=== PATIENT | female | born 1985 | race Caucasian/White ===

== ENCOUNTER 2022-12-10 08:58 | Inpatient (IN) | payer BC ==
[~2022-12-10] VITALS: Ht 165.1 cm; Wt 56.7 kg
--- NOTE | 2022-12-10 09:25 | NUR ---
PAtient AOx4 able to xpress her concerns. Patient states she stepped on an earring on friday, swiollen left foot. PAtient with no signs of distress or discomfort, will continue to monitor.
[2022-12-10] MEDS ORDERED: VANCOMYCIN 1 GM in IV D5W 250 ML IV ONE (10:30)
[2022-12-10] MEDS ORDERED: CEFTRIAXONE 1 G in IV D5W 50 ML IV ONE (10:30)
[2022-12-10] MEDS ORDERED: CEFTRIAXONE 1GM BAG (ER ONLY) 50 ML IV ONE (10:39)
--- NOTE | 2022-12-10 10:40 | NUR ---
Discussed plan of care with patient ans medications ordered by MD. Patient verbalized agreement.
--- NOTE | 2022-12-10 10:46 | NUR ---
Blood collected, sent to lab
--- NOTE | 2022-12-10 10:50 | NUR ---
MD MADE AWARE ABOUT CEFTRIAXONE REACTION. HE IS OK WITH IT. NOTIFIED PHARMACY.
[2022-12-10] MEDS ORDERED: VANCOMYCIN 1 GM VIAL ONE (10:52)
[2022-12-10] MEDS ORDERED: ONDANSETRON HCL/PF 4 MG/2 ML VIAL IV ONE (11:00)
[2022-12-10] MEDS ORDERED: IV NS 0.9% 1,000 ML IV ONE (11:00)
[2022-12-10] MEDS: MORPHINE SULFATE INJ 2 MG/ML DISP.SYRIN IV ONE ×2 (11:00→11:46)
[2022-12-10 11:02] LABS: BASOPHILS % (AUTO) 0.2 % (0.0-2.0); EOSINOPHILS % (AUTO) 0.9 % (0.0-6.0); HEMATOCRIT 41 % (33-45); HEMOGLOBIN 13.4 g/dL (11.5-14.8); LYMPHOCYTES # (AUTO) 1.2 K/uL (0.8-4.8); MEAN CORPUSCULAR HGB CONC 33 g/dl (31.0-36.0); MEAN CORPUSCULAR VOLUME 90 fL (82-100); MONOCYTES # (AUTO) 1.5 K/uL (0.1-1.30); MONOCYTES % (AUTO) 9.9 % (2.0-12.0); NEUTROPHILS # (AUTO) 12.2 K/uL (1.8-8.9); PLATELET COUNT (AUTO) 251 K/uL (150-450); WHITE BLOOD COUNT (AUTO) 15.1 K/uL (4.3-11.0)
[2022-12-10] MEDS ORDERED: MORPHINE SULFATE INJ 2 MG/ML DISP.SYRIN ONE ×2 (11:06→12:21)
[2022-12-10] MEDS ORDERED: ONDANSETRON HCL/PF 4 MG/2 ML VIAL ONE (11:06)
--- NOTE | 2022-12-10 11:08 | NUR ---
Per reggie Goss to admin Morphine 2mg, per patients request.
--- NOTE | 2022-12-10 11:14 | NUR ---
COVID SWAB TAKEN
[2022-12-10 11:16] LABS: C-REACTIVE PROTEIN 7.2 mg/dL (0.0-0.9)
[2022-12-10 11:23] LABS: CALCIUM, SERUM 9.5 mg/dL (8.5-10.1); CREATININE 0.9 mg/dL (0.6-1.3); POTASSIUM 3.9 mmol/L (3.5-5.1)
[2022-12-10] MEDS ORDERED: diphenhydrAMINE HCL 50 MG/ML VIAL ONE (12:22)
[2022-12-10] MEDS ORDERED: diphenhydrAMINE HCL 50 MG/ML VIAL IV ONE (12:30)
--- NOTE | 2022-12-10 13:23 | NUR ---
BED GIVEN 324-2, NURSE IS CAMERON
--- NOTE | 2022-12-10 14:13 | NUR ---
Called [facility], report given to Emerita, patient cleared for transfer.
[2022-12-10] MEDS ORDERED: MAG HYDROX/AL HYDROX/SIMETH 30 ML UDC PO PRN (14:30)
[2022-12-10] MEDS ORDERED: ONDANSETRON HCL/PF 4 MG/2 ML VIAL IVP PRN (14:30)
[2022-12-10] MEDS ORDERED: MAGNESIUM HYDROXIDE 30 ML UDC PO PRN (14:30)
[2022-12-10] MEDS ORDERED: Z GUARD REMEDY 4 OZ OINT TP PRN (14:30)
--- NOTE | 2022-12-10 14:30 | NUR ---
RN NOTE RECEIVED PATIENT VIA GURNEY FROM THE EMERGENCY ROOM. NO SIGNS OF DISTRESS. PATIENT WAS ORIENTED TO ROOM SET UP AND EDUCATED ON THE USE OF CALL LIGHT. VITAL SIGNS TAKEN AND STABLE. SKIN ASSESSMENT PARTIALLY DONE, PATIENT REFUSED SKIN ASSESSMENT, ALLOWED ASSESSMENT OF THE LEFT LEG AND PICTURES TAKEN.BELONGING LIST CHECKED AND SIGNED. PATIENT HAVE A PURSE BUT DID NOT ALLOW US TO CHECK PURSE. PER MED RECON NURSE, PATIENT STATED SHE HAVE 2 MEDICATIONS IN HER PURSE BUT REFUSE TO GIVE IT TO US.PATIENT WAS EDUCATED AND ADVISED NOT TO TAKE ANY MEDICATION WITHOUT KNOWING THAT IS SAFE AND WITHOUT TELLING DR AND NURSES. PATIENT A/O X4, PAIN LEVEL 8/10. PAIN MEDICATION GIVEN. ON ROOM AIR, BREATHING EVEN AND UNLABORED, NO DISTRESS OR SOB. WITH IV ACCESS AT RAC #20G SL, INTACT, PATENT AND FLUSHING WELL. STARTED 1/2 NS AT 75ML/HR. FALL AND SAFETY MEASURE IN PLACE. BED ALARM ON, BED IN LOW AND LOCK POSITION, CALL LIGHT AND TABLE WITHIN EASY REACH, SIDE RAIL UP X2. WILL CONTINUE TO MONITOR
[2022-12-10] MEDS: HYDROCODONE/APAP 5/325MG TABLET PO PRN ×2 (15:47→20:21)
[2022-12-10] MEDS: IV 1/2NS 1000 ML 1,000 ML IV PRN (16:01)
[2022-12-10] MEDS ORDERED: BUPR100T7 PO (16:20)
[2022-12-10] MEDS ORDERED: ESCI10TA PO (16:20)
[2022-12-10] MEDS ORDERED: MORPHINE SULFATE INJ 2 MG/ML DISP.SYRIN IV PRN (18:30)
[2022-12-10 18:47] VITALS: BP 131/82
[2022-12-10] MEDS: VANCOMYCIN HCL 0.75 GM in IV D5W 250 ML IV SCH (19:17)
--- NOTE | 2022-12-10 19:35 | NUR ---
RN CLOSING NOTES PATIENT A/O X4, PAIN LEVEL 8/10. PAIN MEDICATION GIVEN. PATIENT COMPLAINED NORCO NOT WORKING. DR WAS INFORMED, MORPHINE WAS ORDERED. ON ROOM AIR, BREATHING EVEN AND UNLABORED, NO DISTRESS OR SOB. WITH IV ACCESS AT RAC #20G SL, INTACT, PATENT AND FLUSHING WELL. STARTED 1/2 NS AT 75ML/HR. ALL NEEDS ATTENDED AND ANTICIPATED. FALL AND SAFETY MEASURE IN PLACE. BED ALARM ON, BED IN LOW AND LOCK POSITION, CALL LIGHT AND TABLE WITHIN EASY REACH, SIDE RAIL UP X2. WILL ENDORSE TO WATER SYSTEM OPERATOR NURSE
[2022-12-10 20:00] VITALS: BP 115/82
[2022-12-10 20:07] VITALS: BP 115/82
--- NOTE | 2022-12-10 20:10 | NUR ---
MS RN Opening Note Received patient in bed; awake, alert and oriented x 4. On room air; tolerating well. Breathing even and nonlabored. Not in any form of respiratory or cardiac distress. With complaints of left foot pain. Able to verbalize needs. With IV access on left antecubital 20g; patent and intact infusing with 0.45% NS 1L running @ 75 ml/hr; flushes well. No infiltration noted. Fall and safety precautions implemented: call light and table within reach, side rails up x 2, bed in lowest locked position. Will continue to monitor throughout shift.
--- NOTE | 2022-12-10 20:21 | NUR ---
RN Note Seen and examined by Constantino Walters MD.
--- NOTE | 2022-12-10 20:21 | NUR ---
RN Note Patient complained of left foot pain 8/10 pain scale. PRN [place] 5/325 mg 1 tab given po as ordered. Kept comfortable in bed. Will continue to monitor and reassess patient.
--- NOTE | 2022-12-10 23:48 | NUR ---
RN Note Patient complained of left foot pain 8/10 pain scale. PRN Morphine sulfate inj 2mg/1ml given IV as ordered. Kept comfortable in bed. Will continue to monitor and reassess patient.
[2022-12-11] VITALS (8 sets, daily range): BP systolic 97–135; BP diastolic 58–75
[2022-12-11] MEDS: VANCOMYCIN HCL 0.75 GM in IV D5W 250 ML IV SCH ×4 (03:22→19:33)
[2022-12-11] MEDS: IV 1/2NS 1000 ML 1,000 ML IV PRN (05:23)
[2022-12-11] MEDS: HYDROCODONE/APAP 5/325MG TABLET PO PRN ×3 (05:54→19:49)
--- NOTE | 2022-12-11 05:54 | NUR ---
RN Note Patient complained of left foot pain 7/10 pain scale. PRN [place] 5/325 mg 1 tab given po as ordered. Kept comfortable in bed. Will continue to monitor and reassess patient.
--- NOTE | 2022-12-11 06:47 | NUR ---
MS RN Closing Note Patient in bed; awake, a/o x 4. Stable on room air. Breathing even and nonlabored. In no acute distress. With IV access on left antecubital 20g; patent and intact infusing with 0.45% NS 1L running @ 75 ml/hr; flushes well. No infiltration noted. All needs attended. Fall and safety precautions maintained: call light and table within reach, side rails up x 2, bed in lowest locked position. Endorsed to morning shift for continuity of care.
[2022-12-11 07:06] LABS: BASOPHILS % (AUTO) 0.2 % (0.0-2.0); EOSINOPHILS % (AUTO) 1.8 % (0.0-6.0); HEMATOCRIT 34 % (33-45); HEMOGLOBIN 11.4 g/dL (11.5-14.8); LYMPHOCYTES # (AUTO) 1.8 K/uL (0.8-4.8); LYMPHOCYTES % (AUTO) 13.1 % (20.0-44.0); MEAN CORPUSCULAR HGB CONC 33 g/dl (31.0-36.0); MEAN CORPUSCULAR VOLUME 90 fL (82-100); MONOCYTES # (AUTO) 1.4 K/uL (0.1-1.30); MONOCYTES % (AUTO) 10.1 % (2.0-12.0); NEUTROPHILS % (AUTO) 74.8 % (43.0-81.0); PLATELET COUNT (AUTO) 225 K/uL (150-450); RED BLOOD CELL COUNT(AUTO) 3.82 MIL/uL (4.0-5.2); WHITE BLOOD COUNT (AUTO) 13.4 K/uL (4.3-11.0)
--- NOTE | 2022-12-11 07:15 | NUR ---
MS RN OPENING NOTES RECEIVED PATIENT AWAKE A/OX4, ON ROOM AIR, BREATHING EVEN AND UNLABORED, NOT IN ANY ACUTE DISTRESS OR SOB. WITH IV ACCESS LAC G#20 RUNNING NS 1/2 @75 ML/HR INTACT, PATENT AND FLUSHING WELL. PAIN IS CONTROLLED AT THIS TIME. PATIENT IS MAINTAINED ON NPO FOR SURGERY THIS AFTERNOON. SAFETY MEASURES IN PLACE. BED ALARM ON, BED IN LOWEST AND LOCKED POSITION, CALL LIGHT AND TABLE WITHIN EASY REACH, SIDE RAIL UP X2. WILL CONTINUE TO MONITOR.
[2022-12-11 07:16] LABS: ALBUMIN 3.2 g/dL (3.4-5.0); BILIRUBIN,TOTAL 0.3 mg/dL (0.2-1.0); CALCIUM, SERUM 8.3 mg/dL (8.5-10.1); MAGNESIUM 1.9 mg/dL (1.8-2.4); PHOSPHORUS 3.5 mg/dL (2.5-4.9); POTASSIUM 3.6 mmol/L (3.5-5.1)
[2022-12-11] MEDS ORDERED: IV NS 0.9% 1,000 ML IV ONE (08:30)
[2022-12-11] MEDS ORDERED: IV NS 0.9% 1,000 ML IV PRN (08:30)
--- NOTE | 2022-12-11 08:30 | NUR ---
RN NOTES - OR CALLED TO CHECK SURGERY STATUS, CONSENTS SIGNED, PRE-OP CHECKLIST DONE, TEST PENDING, ANESTHESIOLOGIST CONFIRMED ALLOWING PATIENT TO TAKE SIPS OF WATER WITH MEDS.
--- NOTE | 2022-12-11 08:45 | NUR ---
RN NOTES - DR GRIFFITH ORDERED NS BOLUS AND REPLACE NS 1/2 TO NS IVF PRN, CARRIED OUT.
--- NOTE | 2022-12-11 08:57 | NUR ---
WOUND CARE CONSULT: PT FOLLOWED BY DPM FOR LEFT FOOT CELLULITIS, PRESENT ON ADMISSION. DEFER TO PODIATRY FOR WOUND TREATMENT PLAN. WILL SEE PRN.
[2022-12-11] MEDS ORDERED: BUPIVACAINE 0.5 % PF 150 MG/30 ML VIAL ONE (09:57)
--- NOTE | 2022-12-11 10:05 | NUR ---
RN NOTES - PT IS REQUESTING FOR TORADOL, EXPLAINED CONTRAINDICATION D/T POSSIBLE RISK OF BLEEDING, PATIENT UNDERSTANDS. PATIENT IS REQUESTING FOR MORE INFORMATION REGARDING DESIGNATING HER SISTER TO BECOME HER DECISION MAKER IN CASE SHE CANT MAKE IT ANYMORE, INFORMED CM AND CM TO TALK TO SW.
--- NOTE | 2022-12-11 10:10 | NUR ---
RN NOTES - PATIENT COMPLAINING OF 10/10 PAIN ON THE LEFT FOOT, GIVEN [place] 5/325 TABLET PO. WILL CONTINUE TO REASSESS.
[2022-12-11] MEDS: ACETAMINOPHEN 325 MG TABLET PO PRN (10:48)
[2022-12-11] MEDS ORDERED: CEFTRIAXONE 1 G in IV D5W 50 ML IV SCH (11:00)
--- NOTE | 2022-12-11 11:00 | NUR ---
RN NOTES - CALLED PHARMACY REGARDING VANCOMYCIN DOSE AT 11, PATIENT CLAIMS THAT IT WAS NOT GIVEN TO HER AT 0322 SHOWING ON THE BAG AND SYSTEM THAT IT WAS GIVEN AT 0600, PHARMACIST GIOVANI GAVE AN OKAY TO GIVE IT LESS THAN 8 HOURS, CHARGE NURSE IS AWARE WELL/
[2022-12-11] MEDS ORDERED: RIME75TA PO (12:12)
--- NOTE | 2022-12-11 13:00 | NUR ---
RN NOTES - HOME MEDICATIONS BROUGHT BY PATIENT SENT TO THE PHARMACY AND WAS RECEIVED BY PHARMACIST INCLUDING NURTEC, LEXAPRO, WELLBUTRIN, XANAX, ADDERALL, AND ORANGE ROUND PILL (MUSCLE RELAXANT). INFORMED DR GRIFFITH REGARDING HOME MEDS WELL.
[2022-12-11] MEDS ORDERED: NURTEC PO PRN (13:30)
[2022-12-11] MEDS ORDERED: POLYMYXIN B SULFATE 500,000 UNITS ONE (14:10)
[2022-12-11] MEDS ORDERED: FENTANYL PF 250MCG/5ML AMPUL ONE (14:27)
[2022-12-11] MEDS ORDERED: MIDAZOLAM HCL 2 MG/2ML VIAL ONE (14:28)
[2022-12-11] MEDS ORDERED: FAMOTIDINE/PF INJ 20 MG/2 ML VIAL IV ONE (14:29)
[2022-12-11] MEDS ORDERED: CLINDAMYCIN 900 MG/6 ML VIAL ONE (14:29)
--- NOTE | 2022-12-11 14:30 | NUR ---
RN NOTES - PATIENT WAS TAKEN TO OPERATING ROOM AT AROUND 1415 PER COVERING RN.
--- NOTE | 2022-12-11 16:45 | NUR ---
RN NOTES - PATIENT GOT BACK FROM OR S/P L FOOT INCISION AND DRAINAGE BY DR SINGH, PATIENT IS IN STABLE CONDITION, ON ROOM AIR, VITAL SIGNS TAKEN, DENIES PAIN NOR DISCOMFORT AT THIS TIME. LEFT FOOT DRESSING IS C/D/I. WILL CONTINUE TO MONITOR.
--- NOTE | 2022-12-11 17:30 | NUR ---
RN NOTES - PATIENT WAS ABLE TO TOLERATE CLEAR LIQUIDS, WILL ADVANCE TO REGULAR DIET.
[2022-12-11] MEDS ORDERED: buPROPion SR 100 MG TABLET.ER PO SCH (18:00)
[2022-12-11] MEDS ORDERED: ESCITALOPRAM OXALATE (10 MG) 10 MG TABLET PO SCH (18:00)
--- NOTE | 2022-12-11 19:30 | NUR ---
MS RN OPENING NOTE RECEIVED PATIENT IN BED, AWAKE, ALERT AND ORIENTED X4, WITH SISTER AT BEDSIDE. AFEBRILE AND NOT IN ANY FORM OF ACUTE DISTRESS. BREATHING EVEN AND NON LABORED. S/P I AND D ON L FOOT, MONITORED FOR ANY BLEEDING. WITH IV ACCESS ON LAC 20G RUNNING WITH NS AT 75ML/HR. SAFETY MEASURES IN PLACE. KEPT BED IN LOCKED AND IN LOW POSITION. SIDE RAILS UP X2. ADVISED TO USE THE CALL LIGHT WHEN IN NEED OF ASSISTANCE.
[2022-12-12] MEDS: VANCOMYCIN HCL 0.75 GM in IV D5W 250 ML IV SCH ×2 (02:09→11:18)
[2022-12-12] MEDS: HYDROCODONE/APAP 5/325MG TABLET PO PRN ×2 (05:22→10:12)
[2022-12-12] MEDS: ACETAMINOPHEN 325 MG TABLET PO PRN (06:24)
--- NOTE | 2022-12-12 06:30 | NUR ---
MS RN CLOSING NOTE PATIENT IN BED, ASLEEP BUT EASY TO AROUSE AND RESPONSIVE. ABLE TO COMMUNICATE NEEDS WITH THE STAFFS. AFEBRILE AND NOT IN ANY FORM OF ACUTE DISTRESS. BREATHING EVEN AND NON LABORED. S/P I AND D ON L FOOT, NO S/SX. OF ACTIVE BLEEDING. WITH IV ACCESS ON LAC 20G RUNNING WITH NS AT 75ML/HR. MEDICATED ORDERED. CONTINUOUS ON IV ATB, MONITORED FOR ANY ADVERSE REACTION. SAFETY MEASURES IN PLACE. KEPT BED IN LOCKED AND IN LOW POSITION. SIDE RAILS UP X2. ADVISED TO USE THE CALL LIGHT WHEN IN NEED OF ASSISTANCE. ALL NURSING NEEDS ATTENDED. ENDORSED TO INCOMING SHIFT FOR CONTINUITY OF CARE.
[2022-12-12 07:00] VITALS: BP 110/68
--- NOTE | 2022-12-12 07:15 | NUR ---
MS RN OPENING NOTES RECEIVED PATIENT AWAKE A/OX4, ON ROOM AIR, BREATHING EVEN AND UNLABORED, NOT IN ANY ACUTE DISTRESS OR SOB. WITH IV ACCESS LAC G#20 SALINE LOCKED INTACT, PATENT AND FLUSHING WELL. PAIN IS CONTROLLED AT THIS TIME. SAFETY MEASURES IN PLACE. BED ALARM ON, BED IN LOWEST AND LOCKED POSITION, CALL LIGHT AND TABLE WITHIN EASY REACH, SIDE RAIL UP X2. WILL CONTINUE TO MONITOR.
[2022-12-12 07:24] LABS: BASOPHILS % (AUTO) 0.2 % (0.0-2.0); EOSINOPHILS % (AUTO) 2.3 % (0.0-6.0); HEMATOCRIT 34 % (33-45); HEMOGLOBIN 11.3 g/dL (11.5-14.8); LYMPHOCYTES # (AUTO) 1.4 K/uL (0.8-4.8); LYMPHOCYTES % (AUTO) 14.2 % (20.0-44.0); MEAN CORPUSCULAR HGB CONC 34 g/dl (31.0-36.0); MEAN CORPUSCULAR VOLUME 90 fL (82-100); MONOCYTES % (AUTO) 9.4 % (2.0-12.0); NEUTROPHILS # (AUTO) 7.5 K/uL (1.8-8.9); NEUTROPHILS % (AUTO) 73.9 % (43.0-81.0); PLATELET COUNT (AUTO) 216 K/uL (150-450); RED BLOOD CELL COUNT(AUTO) 3.72 MIL/uL (4.0-5.2); WHITE BLOOD COUNT (AUTO) 10.1 K/uL (4.3-11.0)
[2022-12-12 07:33] LABS: CALCIUM, SERUM 8.3 mg/dL (8.5-10.1); CREATININE 0.8 mg/dL (0.6-1.3); MAGNESIUM 2.1 mg/dL (1.8-2.4); PHOSPHORUS 3.5 mg/dL (2.5-4.9)
--- NOTE | 2022-12-12 10:15 | NUR ---
RN NOTES - PAIN MANAGEMENT PT COMPLAINING OF PAIN 7/10 ON PAIN SCALE ON THE LEFT FOOT AREA. GIVEN [place] 5 PO ORDERED,VS STABLE
[2022-12-12] MEDS ORDERED: IBUPROFEN 200 MG TABLET PO PRN (11:00)
[2022-12-12] MEDS ORDERED: KETOROLAC TROMETHAMINE INJ 30 MG/ML VIAL IM PRN (11:00)
[2022-12-12] MEDS ORDERED: KETOROLAC TROMETHAMINE 10 MG TABLET PO PRN (11:00)
--- NOTE | 2022-12-12 11:30 | NUR ---
RN NOTES - LAC G#20 INFILTRATED EVIDENCED BY REDNESS, STARTED A NEW LINE LFA G#22 FLUSHING WELL, PATENT.
--- NOTE | 2022-12-12 12:43 | NUR ---
RN NOTES - PATIENT NEGATIVE FROM [facility]EN[facility] DOPPLER STUDY, DR GRIFFITH WAS MADE AWARE. OKAY TO HAVE PT GO LONG DR SINGH SEES THE PT AND CHANGES THE DRESSING. DR SINGH HAS BEEN NOTIFIED, AWAITING RESPONSE.
--- NOTE | 2022-12-12 14:03 | NUR ---
RN NOTES - DR SINGH ORDERED DC FOR PT, ORDERED BETADINE AND DRY DRESSING FOR WOUND AND WBAT ON HEEL. TO FOLLOW UP IN 1 WEEK AND TO CALL [phone] PATIENT WAS SEEN BY PT - WAS ISSUED CRUTCHES, CALLED [facility] TO SEND POST OP SHOE - SENT SMALL AND MEDIUM SHOE EACH. DR NACHO CAREY'D TO DC WITH PAIN MEDS AND ATB, JUST AWAITING DC ORDER.
--- NOTE | 2022-12-12 14:37 | NUR ---
RN NOTES - PAIN MANAGEMENT PT COMPLAINING OF PAIN 7/10 ON PAIN SCALE ON THE LEFT FOOT AREA. GIVEN [place] 5 PO ORDERED,VS STABLE. PHARMACY OKAY'D TO START THIS NEW FREQUENCY.
[2022-12-12] MEDS ORDERED: CLIN300C12 PO (14:44)
[2022-12-12] MEDS ORDERED: HYDROCODONE/APAP 5/325MG TABLET PO PRN ×2 (15:00→18:00)
--- NOTE | 2022-12-12 18:40 | NUR ---
NOTES - PATIENT REFUSED THE POST OP SHOES PROVIDED, CALLED [employer], NO ANSWER - LEFT A VOICEMAIL, LEFT AT THE NURSES' STATION.
[2022-12-12] MEDS ORDERED: VANCOMYCIN 500 MG in IV D5W 100ml IV SCH (19:00)
--- NOTE | 2022-12-12 19:52 | NUR ---
MS CREATIVE/ART DIRECTOR NOTE PT DISCHARGED TO HOME IN STABLE CONDITION. PT AOX4, ABLE TO MAKE NEEDS KNOWN, STABLE ON ROOM AIR. NO SOB NOTED, NOT IN ANY SIGN OF ACUTE DISTRESS. VITAL SIGNS TAKEN AND RECORDED, STABLE, AFEBRILE. WOUND CARE GIVEN TO THE LEFT PLANTAR WOUND GIVEN ORDERED - BETADINE + DRY DRESSING, PATIENT WAS TAUGHT HOW TO DO THE TREATMENT, GIVEN SUPPLY WELL. PATIENT DENIES PAIN NOR DISCOMFORT AT THE MOMENT. ALL BELONGINGS ACCOUNTED FOR, FORM SIGNED. DISCHARGE INSTRUCTIONS GIVEN TO PT, DISCHARGED WITH CRUTCHES, REFUSED POST OP SHOE. IV ACCESS REMOVED AND PRESSURE GAUZE APPLIED. PT LEFT THE UNIT AT [place] 1720 VIA WHEELCHAIR, PT ACCOMPANIED BY ME AND HOSPICE NURSE PRACTITIONER. MEDS CLAIMED FROM PHARMACY. AND CHARGE NURSE AWARE OF THE DC.
== END 2022-12-12 17:15 | disposition home or self-care (01) | DRG 605 ==
LOC: ER 09:04 → MED 13:39
PROVIDERS: ADMIT Internal Medicine; ATTEND Internal Medicine
PROC: 0H9NXZZ Drainage of Left Foot Skin, External Approach (ICD-10-PCS; principal; 2022-12-11)
DX: S91.332A Puncture wound without foreign body, left foot, initial encounter (principal); L03.116 Cellulitis of left lower limb; I80.9 Phlebitis and thrombophlebitis of unspecified site; Z88.2 Allergy status to sulfonamides; Z88.0 Allergy status to penicillin; X58.XXXA Exposure to other specified factors, initial encounter; Y92.9 Unspecified place or not applicable; Z20.822 Contact with and (suspected) exposure to COVID-19
CPT/HCPCS: 36415; 73630-TC; 73700-TC; 80048-TC; 80053-TC; 80202-TC; 83605-TC; 83735-TC; 84100-TC; 84703-TC; 85025-TC; 85652-TC; 86140-TC; 87040-TC; 87081-TC; 93971-TC; 97116-TC; A4223; A6209; A6253; C9803; G0378; J0696; J1200; J2250; J2270; J2405; J2704; J2765; J3010; J3370; J3490; J7030; J7040; J7050; J7060